=== PATIENT | male | born 1970 | race Caucasian/White ===

== ENCOUNTER 2023-10-25 11:41 | Emergency (ER) | payer MEDICAID ==
[~2023-10-25] VITALS: Ht 177.8 cm; Wt 111.0 kg
[2023-10-25 11:55] VITALS: BP 149/99; RESP 16; TEMP 98.8; O2SAT 99
[2023-10-25 12:01] VITALS: PULSE 88
[2023-10-25] MEDS ORDERED: IBUP-2028 MT (14:01)
[2023-10-25] MEDS ORDERED: TOPUD MT (14:01)
[2023-10-25] MEDS ORDERED: LIDO700A15 TP (14:01)
== END 2023-10-25 14:31 | disposition home or self-care (01) ==
LOC: ER 11:41
DX: S09.8XXA Other specified injuries of head, initial encounter (principal); M54.2 Cervicalgia; I10 Essential (primary) hypertension; Z98.890 Other specified postprocedural states; V89.2XXA Person injured in unspecified motor-vehicle accident, traffic, initial encounter; Y93.89 Activity, other specified; Y92.89 Other specified places as the place of occurrence of the external cause; Y99.8 Other external cause status
CPT/HCPCS: 73030; 99284